=== PATIENT | female | born 1995 | race Caucasian/White ===

== ENCOUNTER 2023-06-13 08:13 | Outpatient (AMB) | payer OTHER, SELFPAY ==
--- NOTE | 2023-06-13 08:15 | MHC.PC.OV ---
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 Allergies peanut Allergy (Mild, Verified 06/13/23 08:24) Hives mushrooms Allergy (Mild, Uncoded 06/13/23 08:24) Hives Medication List - Last Reconciled 06/13/23 by KRAIG Matos albuterol sulfate 90 mcg/actuation (Ventolin HFA) 2 puffs inhalation QID PRN cholecalciferol (vitamin D3) 250 mcg PO QWEEK clonazepam 1 mg PO BEDTIME sertraline 225 mg PO BID trazodone 50 mg PO BEDTIME Tobacco use date assessed: 06/13/23 Dental Screening Dental Screen Date: 06/13/23 Did you have a dental visit in the last 12 months?: No Did you have a dental problem in the last 6 months where you did not have access to dental care?: No Was dental information given to patient?: No HPI HPI Comments History of Present Illness Details Patient is a 27-year-old female here to establish care. She has a past medical history significant for PTSD, insomnia, depression, and asthma. She is up-to-date on immunizations including this year's influenza and COVID booster. She is due for a Pap smear, will refer to OBGYN. She states that she needs to find a new psychiatric provider and is running low on medications, she will meet with community mental health liaison in office today. Denies SI/HI. [facility] Medical History (Updated 06/13/23 @ 09:29 by KRAIG Matos) Asthma Anxiety PTSD (post-traumatic stress disorder) Surgical History H/O foot surgery Family History (Updated 06/13/23 @ 08:32 by KRAIG Matos) Paternal Grandfather Brain cancer Maternal Aunt Diabetes Social History (Updated 06/13/23 @ 08:32 by KRAIG Matos) Housing: Apartment Alcohol intake: current Comment: 1 or 2 times per month Patient Tobacco Use Status: Never used Tobacco e-Cigarette/Vaping Use: Never Used service: No Current occupational status: employed Cognitive needs: No Hearing needs: No Vision needs: No Questionnaire PHQ-9 Over the last 2 weeks, how often have you been bothered by any of the following problems? 1. Little interest or pleasure in doing things: nearly every day 2. Feeling down, depressed, or hopeless: nearly every day 3. Trouble falling or staying asleep, or sleeping too much: nearly every day 4. Feeling tired or having little energy: nearly every day 5. Poor appetite or overeating: more than half the days 6. Feeling bad about yourself - or that you are a failure or have let yourself or your family down: more than half the days 7. Trouble concentrating on things, such as reading the newspaper or watching television: more than half the days 8. Moving or speaking so slowly that other people could have noticed. Or the opposite - being so fidgety or restless that you have been moving around a lot more than usual: not at all 9. Thoughts that you would be better off or of hurting yourself in some way: not at all Total score: 18 Depression Screening Interpretation: Positive Depression Screening Done: Yes 02640 - PHQ-9 Billing: Yes Source: Developed by Drs. Maurizio Hinton, Rebecca Johnson, Aakash Haley and colleagues, with an educational noah from [employer]. Thrive Questionnaire Date Thrive assessed: 06/13/23 I am a: Patient What is your living situation today?: I have a steady place to live Within the past 12 months, did the food you bought not last and you didn't have the money to get more?: Never true Within the past 12 months, did you worry whether your food would run out before you got money to buy more?: Never true Do you have trouble paying for medicines?: No Do you have trouble getting transportation to medical appointments?: No Do you have trouble paying your heating and electricity bill?: No Do you have trouble taking care of your child, family member or friend?: No Do you have trouble with day-to-day activities such as bathing, preparing meals, shopping, managing finances, etc.?: Yes Are you currently unemployed and looking for a job?: No Are you interested in more education?: No Please select the resources that you would like help with: None AUDIT C Alcohol Use Questionnaire (AUDIT-C) 1. How often do you have a drink containing alcohol?: Never 3. How often do you have six or more drinks on one occasion?: Never Total Score: 0 Score Reviewed/Action Taken: Yes WESTON-7 AMB Questionnaire WESTON-7 Feeling nervous, anxious, or on edge: 2 = More than half the days Not being able to stop or control worryin = More than half the days Worrying too much about different things: 3 = Nearly every day Trouble relaxin = More than half the days Being so restless that it is hard to sit still: 1 = Several days Becoming easily annoyed or irritable: 2 = More than half the days Feeling afraid as if something awful might happen: 2 = More than half the days Total WESTON-7 score (0-4 normal; 5-9 mild; 10-14 moderate; 15-21 severe): 14 Source: Developed by Drs. Maurizio Hinton, Rebecca Johnson, Aakash Haley and colleagues, with an educational noah from [employer]. WESTON-7 Assessment Billing WESTON-7 Assessment Tool: WESTON-7 Assessment 54462 Review of Systems Const Details: Constitutional : No Weight loss, No Fever, No Chills, No Fatigue, No Malaise Cardiovascular : No Chest Pain, No SOB, No Dyspnea on Exertion, No Orthopnea, No Edema, No Palpitations Respiratory : No Cough, No Sputum, No Wheezing Gastrointestinal : No Nausea, No Vomiting, No Diarrhea, No Constipation, No abdominal Pain, No Hematochezia, No Melena Musculoskeletal : No joint pain, No Myalgias, No Joint Swelling Skin : No Skin Lesions, No rash Neuro : No Weakness, No Numbness, No Dizziness, No Headache Psych :Admits Depression. Denies SI/HI. All other systems reviewed and are negative Physical exam (Primary Care) Vital Signs: Last Vital Signs Pulse 82 06/13/23 08:17 BP 126/78 06/13/23 08:17 Pulse Ox 97 06/13/23 08:17 Oxygen Delivery Method Room Air 06/13/23 08:17 Care Plan Goal for BP management: Vital signs reviewed and are stable BMI result Body Mass Index 31.0 Tobacco/Smoking Status: Tobacco use Status Tobacco use date assessed 06/13/23 06/13/23 08:22 Patient Tobacco Use Status Never used Tobacco 06/13/23 08:32 e-Cigarette/Vaping Use Never Used 06/13/23 08:32 PHQ-9: PHQ-9 Score PHQ-9: Total score 18 06/13/23 09:27 Depression Screening Interpretation: Positive Thrive Assessment: Date of Thrive Assessment Date Thrive assessed 06/13/23 06/13/23 09:14 Const Other: Appearance: Alert.? Oriented X3.? No acute distress.? Eyes: Pupils equal, round and reactive to light.? Neck: Normal inspection.? Neck supple.? CVS: Normal heart rate and rhythm.? Pulses normal.? Respiratory: No respiratory distress.? Breath sounds normal.? Skin: Skin warm and dry.? Normal skin color.? Normal skin turgor.? Neuro: Oriented X 3.? No motor deficit.? No sensory deficit. CN 2-12 intact Psych: Patient affect flat at times. Assessment and Plan Assessment & Plan (1) Depression with anxiety: Comment: Patient has history of anxiety and depression. Patient does not have mental health provider this time. Patient will meet with in office mental health liaison to assist in finding a mental health provider. Will refill the patient's sertraline and trazodone. Patient has been educated on signs of worsening symptoms and when to return to the office or when to present to the emergency room. Code(s): F41.8 - Other specified anxiety disorders Orders: Orders Complete Blood Count Auto Diff Today Z13.0 - Encounter for screening for diseases of the blood and blood-forming organs and certain disorders involving the immune mechanism Comprehensive Met. Panel Today Z91.89 - Other specified personal risk factors, not elsewhere classified Lipid Panel Today E78.5 - Hyperlipidemia, unspecified UA CC w/rflx Micro + Cult Today E86.0 - Dehydration TSH reflex Free T4 Today E03.9 - Hypothyroidism, unspecified Vitamin D 25-OH (D2 and D3) Today Z13.21 - Encounter for screening for nutritional disorder Referrals [employer] Referral Z01.419 - Encounter for gynecological examination (general) (routine) without abnormal findings Medications: New sertraline 200 mg (2 x 100 mg) PO DAILY 90 tabs 0RF sertraline 25 mg PO DAILY 90 tabs 0RF trazodone 50 mg PO BEDTIME 90 tabs 0RF Coding Level of Care Code New Pt Level 3 (95515) Diagnoses Depression with anxiety F41.8 Additional Codes WESTON-7 Assessment Billing - WESTON-7 Assessment Tool: WESTON-7 Assessment 48575 ([id number]) Time Spent (min) 30
[2023-06-13 08:17] VITALS: BP 126/78; PULSE 82; O2SAT 97; BMI 31.0
== END 2023-06-13 09:50 | disposition home or self-care (01) ==
PROVIDERS: Visit Provider Nurse Practitioner Primary Care
DX: F41.8 Other specified anxiety disorders (principal)
CPT/HCPCS: 96127; 99203

== ENCOUNTER 2023-07-08 11:18 | Outpatient (REF) | payer OTHER, SELFPAY ==
[2023-07-08 13:22] LABS: MANUAL DIFF FLAG NO
[2023-07-08 13:23] LABS: Appearance Urine Clear; Color Urine Yellow; Glucose Urine UA Negative (Negative); Leukocyte Esterase Urine Negative (Negative); Nitrite Urine Negative (Negative); Specific Gravity - Urine 1.025 (1.005-1.025); Urine Blood Negative (Negative); Urine Ketones Negative (Negative); Urine Protein Negative (Neg-Trace)
[2023-07-08 13:31] LABS: Basophils Percent Auto 0.1 % (0-2); Eosinophils Absolute Auto 0.1 X10*3/uL (0.0-0.4); Eosinophils Percent Auto 0.7 % (0-4); Hematocrit 39.7 % (37.0-47.0); Hemoglobin 13.4 g/dl (12.0-16.0); Imm Gran Abs Auto 0.01 X10*3/uL (0.00-0.03); Imm Gran Pct Auto 0.1 % (0.0-0.4); Lymphocytes Percent Auto 29.2 % (20-40); Mean Corpuscular HGB Conc 33.8 g/dl (31.0-35.0); Mean Corpuscular Hemoglobin 28.2 pg (27.0-33.0); Mean Corpuscular Volume 83.6 fL (80.0-98.0); Mean Platelet Volume 10.5 fL (9.4-12.3); Monocytes Absolute Auto 0.4 X10*3/uL (0.1-1.2); Monocytes Percent Auto 5.7 % (2-11); Neutrophils Absolute Auto 4.4 x10*3/uL (2.0-8.3); Neutrophils Percent Auto 64.2 % (45-73); Platelet Count 273 X10*3/uL (160-400); Red Blood Count 4.75 X10*6/uL (4.20-5.50); Red Cell Distribution Width 13.1 % (11.0-16.0); White Blood Count 6.8 X10*3/uL (4.8-10.8)
[2023-07-08 14:19] LABS: Alanine Aminotransferase 8 U/L (0-31); Albumin Level 4.6 g/dL (3.5-5.0); Alkaline Phosphatase 64 U/L (39-117); Anion Gap 11 (12-20); Aspartate Amino Transferase 11 U/L (5-31); Bilirubin Total 0.3 mg/dL (0.0-1.0); Blood Urea Nitrogen 17 mg/dL (9-16); Calcium 9.6 mg/dL (8.4-10.2); Carbon Dioxide 24 mmol/L (22-29); Chloride 107 mmol/L (96-108); Cholesterol 172 mg/dL (<200); Estimated Glomerular Filt Rate > 60; Glucose Random 85 mg/dL (60-115); HDL Cholesterol 51 mg/dL (>40); LDL Cholesterol Calculated 110 mg/dL (<100); Potassium 4.2 mmol/L (3.3-5.1); Sodium 138 mmol/L (135-145); TSH reflex Free T4 1.44 uIU/mL (0.32-4.0); Total Protein 8.2 g/dL (6.5-8.0); Triglycerides 58 mg/dL (<150)
[2023-07-12 14:38] LABS: Vitamin D 25-OH, D2 <4 ng/mL; Vitamin D 25-OH, D3 35 ng/mL; Vitamin D 25-OH, Total 35 ng/mL (30-100)
== END 2023-07-08 11:19 | disposition home or self-care (01) ==
LOC: HO.HMGCLDS 11:18
PROVIDERS: PCP Nurse Practitioner Primary Care; Visit Provider Nurse Practitioner Primary Care
DX: Z13.21 Encounter for screening for nutritional disorder (principal); Z13.0 Encounter for screening for diseases of the blood and blood-forming organs and certain disorders involving the immune mechanism; E03.9 Hypothyroidism, unspecified; E78.5 Hyperlipidemia, unspecified; E86.0 Dehydration; Z91.89 Other specified personal risk factors, not elsewhere classified
CPT/HCPCS: 36415; 80053; 80061; 81003; 82306; 84443; 85025

== ENCOUNTER 2023-10-13 09:02 | Outpatient (AMB) | payer OTHER, SELFPAY ==
[2023-10-13 09:09] VITALS: BP 126/72; PULSE 79; O2SAT 98; BMI 30.7
--- NOTE | 2023-10-13 09:11 | MHC.PC.OV ---
Vital Signs 10/13/23 09:09 Height 5 ft 6 in Weight 190 lb BMI 30.7 BP 126/72 Blood Pressure Location Rt brachial Position Sitting Pulse 79 Pulse Source Pulse Oximeter Pulse Oximetry (%) 98 Intake Visit Reasons: Annual PE Intake Note: pt is here for annual exam Allergies peanut Allergy (Mild, Verified 10/13/23 09:24) Hives mushrooms Allergy (Mild, Uncoded 10/13/23 09:24) Hives Medication List - Last Reconciled 10/13/23 by KRAIG Matos albuterol sulfate 90 mcg/actuation (Ventolin HFA) 2 puffs inhalation QID PRN cholecalciferol (vitamin D3) 250 mcg PO QWEEK sertraline 25 mg PO DAILY sertraline 200 mg (2 x 100 mg) PO DAILY trazodone 50 mg PO BEDTIME Tobacco use date assessed: 06/13/23 Dental Screening Dental Screen Date: 06/13/23 Did you have a dental visit in the last 12 months?: Yes Did you have a dental problem in the last 6 months where you did not have access to dental care?: No Was dental information given to patient?: Patient has dentist HPI HPI Comments History of Present Illness Details Patient is a 28-year-old female in today for physical exam. She has a past medical history significant for PTSD and anxiety- patient is currently taking 225 mg sertraline started by previous psychiatric provider. Patient has established care with therapist. Patient states she is doing well, would like to start reducing her dose of sertraline. She is currently on the wait list for a psychiatrist. Patient will have dose reduced to 200 mg p.o. daily. Insomnia - patient is currently taking 50 mg trazodone prn. She would like to stop taking this medication is making her feel drowsy the next day. Asthma - She is utilizing albuterol 4-5 times per week. [facility] at [facility] for daily use. Patient is due for Pap smear, referral was placed in May. Patient has been instructed to follow-up Patient is up-to-date with TD. [facility] Medical History (Updated 10/13/23 @ 09:49 by KRAIG Matos) Asthma Anxiety PTSD (post-traumatic stress disorder) Surgical History H/O foot surgery Family History Paternal Grandfather Brain cancer Maternal Aunt Diabetes Social History Housing: Apartment Alcohol intake: current Comment: 1 or 2 times per month Patient Tobacco Use Status: Never used Tobacco e-Cigarette/Vaping Use: Never Used service: No Current occupational status: employed Cognitive needs: No Hearing needs: No Vision needs: No Questionnaire PHQ-9 Over the last 2 weeks, how often have you been bothered by any of the following problems? 91983 - PHQ-9 Billing: Patient declined-do not bill Source: Developed by Drs. Maurizio Hinton, Rebecca Johnson, Aakash Haley and colleagues, with an educational noah from [employer]. Thrive Questionnaire Date Thrive assessed: 06/13/23 WESTON-7 AMB Questionnaire WESTON-7 Assessment Billing WESTON-7 Assessment Tool: pt declined-do not bill Review of Systems Const All systems reviewed & are unremarkable except as noted in HPI and below Psych Denies homicidal ideation and Denies suicidal ideation Physical exam (Primary Care) Vital Signs: Last Vital Signs Pulse 79 10/13/23 09:09 BP 126/72 10/13/23 09:09 Pulse Ox 98 10/13/23 09:09 Care Plan Goal for BP management: blood pressure is well controlled BMI result Body Mass Index 30.7 Tobacco/Smoking Status: Tobacco use Status Tobacco use date assessed 06/13/23 10/13/23 09:12 Patient Tobacco Use Status Never used Tobacco 10/13/23 09:12 e-Cigarette/Vaping Use Never Used 10/13/23 09:12 Thrive Assessment: Date of Thrive Assessment Date Thrive assessed 06/13/23 10/13/23 09:12 Forms completed: None ( patient declined) Const Other: Appearance: Alert.? Oriented X3.? No acute distress.? Head: Normocephalic, atraumatic, no step-offs or deformities Eyes: Pupils equal, round and reactive to light.? ENT: + post nasal drip. TM intact and pearly mercer. Neck: Normal inspection.? Neck supple.?Full ROM. CVS: Normal heart rate and rhythm.? Pulses normal.? Respiratory: No respiratory distress.? Breath sounds normal.? Abdomen: Soft and nontender.? Skin: Skin warm and dry.? Normal skin color.? Normal skin turgor.? Extremities: No lower extremity edema. 5/5 strength to bilateral upper and lower extremities Back: No midline tenderness, no C-spine tenderness, full range of motion, no CVA tenderness bilaterally Neuro: Oriented X 3.? No motor deficit.? No sensory deficit. CN 2-12 intact Results Reviewed Results Reviewed: Sodium 138 135-145 mmol/L Potassium 4.2 3.3-5.1 mmol/L CL 107 96-108 mmol/L CO2 24 22-29 mmol/L Gap 11 L 12-20 BUN 17 H 9-16 mg/dL Creat 0.83 0.5-1.4 mg/dL EGFR > 60 NOTE: For -[place] individuals, multiply the result by 1.210. Chronic Kidney Disease: Estimated GFR < 60 mL/min/1.73m2 Severe Kidney Disease: Estimated GFR < 15 mL/min/1.73m2 Glucose, Random 85 60-115 mg/dL CA 9.6 8.4-10.2 mg/dL Total Bili 0.3 0.0-1.0 mg/dL AST (GOT) 11 5-31 U/L ALT (GPT) 8 0-31 U/L Protein, Total 8.2 H 6.5-8.0 g/dL Alb 4.6 3.5-5.0 g/dL Triglyceride 58 <150 mg/dL Desirable Triglyceride: less than 150 mg/dL Borderline High Triglyceride 150-199 mg/dL High Triglyceride: 200-499 mg/dL Very High Triglyceride: greater than or equal to 5OO mg/dL Cholesterol 172 <200 mg/dL Desirable Cholesterol: less than 200 mg/dL Borderline High Cholesterol: 200-239 mg/dL High Cholesterol: greater than 239 mg/dL LDL Calculated 110 H <100 mg/dL Desirable LDL: less than 100 mg/dL Near Optimal/Above Optimal LDL: 110-129 mg/dL Borderline High LDL: 130-159 mg/dL High LDL: 160-189 mg/dL Very High LDL: greater than or equal to 190 mg/dL HDL 51 >40 mg/dL Desirable HDL: greater than 40 mg/dL Note: This HDL assay may give artificially low results in patients with liver disease. Alk Phos 64 39-117 U/L TSH 1.44 0.32-4.0 uIU/mL Assessment and Plan Assessment & Plan (1) Encounter for physical examination: Comment: will draw CBC and BMP. Code(s): Z00.00 - Encounter for general adult medical examination without abnormal findings (2) Depression with anxiety: Comment: His tablets care with therapist. On wait list for psychiatrist. Patient currently taking 225 mg sertraline would like to be weaned down. Patient will be instructed to take 200 mg p.o. daily. She has been educated on signs of worsening symptoms and when to report to the walk-in or to present to the ED Code(s): F41.8 - Other specified anxiety disorders (3) Asthma: Comment: patient currently utilizing albuterol 4-5 times per week. Patient will be given a Symbicort. Code(s): J45.909 - Unspecified asthma, uncomplicated Qualifiers: Asthma complication type: unspecified Asthma persistence: unspecified Asthma severity: moderate Qualified Code(s): J45.909 - Unspecified asthma, uncomplicated (4) Seasonal allergies: Comment: Patient instructed to start cetirizine 10 mg p.o. daily. Code(s): J30.2 - Other seasonal allergic rhinitis Plan: Patient will follow-up in a 4 weeks for medication review Orders: Orders Comprehensive Met. Panel Today Z91.89 - Other specified personal risk factors, not elsewhere classified Complete Blood Count Auto Diff Today Z13.0 - Encounter for screening for diseases of the blood and blood-forming organs and certain disorders involving the immune mechanism Medications: New budesonide-formoterol 160-4.5 mcg/actuation (Symbicort) 1 inh inhalation BID 10.2 grams 0RF cetirizine (All Day Allergy (cetirizine)) 10 mg PO DAILY PRN 60 tabs 0RF allergy symptoms Discontinued sertraline Discontinued Reason: Patient no longer taking 25 mg PO DAILY 90 tabs 0RF trazodone Discontinued Reason: Patient no longer taking 50 mg PO BEDTIME 90 tabs 0RF Coding Level of Care Code Est Pt Prev Care 18-39y(69574) Diagnoses Encounter for physical examination Z00.00 Depression with anxiety F41.8 Moderate asthma, unspecified whether complicated, unspecified whether persistent J45.909 Asthma complication type: unspecified Asthma persistence: unspecified Asthma severity: moderate Seasonal allergies J30.2
== END 2023-10-13 10:48 | disposition home or self-care (01) ==
PROVIDERS: Visit Provider Nurse Practitioner Primary Care
DX: Z00.00 Encounter for general adult medical examination without abnormal findings (principal); F41.8 Other specified anxiety disorders; J45.909 Unspecified asthma, uncomplicated
CPT/HCPCS: 99395

== ENCOUNTER 2023-11-17 08:58 | Outpatient (AMB) | payer OTHER, SELFPAY ==
[2023-11-17 09:04] VITALS: BP 110/74; PULSE 73; O2SAT 98; BMI 31.6
--- NOTE | 2023-11-17 09:04 | MHC.PC.OV ---
Vital Signs 11/17/23 09:04 Height 5 ft 6 in Weight 196 lb BMI 31.6 BP 110/74 Blood Pressure Location Lt brachial Position Sitting Pulse 73 Pulse Source Pulse Oximeter Pulse Oximetry (%) 98 Oxygen Delivery Method Room Air Intake Visit Reasons: 1 Month follow up Intake Note: pt is here forr 1 month f/u for asthma Allergies peanut Allergy (Mild, Verified 11/17/23 09:05) Hives mushrooms Allergy (Mild, Uncoded 11/17/23 09:05) Hives Medication List - Last Reconciled 11/17/23 by KRAIG Matos albuterol sulfate 90 mcg/actuation (Ventolin HFA) 2 puffs inhalation QID PRN budesonide-formoterol 160-4.5 mcg/actuation (Symbicort) 1 inh inhalation BID cetirizine (All Day Allergy (cetirizine)) 10 mg PO DAILY PRN cholecalciferol (vitamin D3) 250 mcg PO QWEEK sertraline 200 mg (2 x 100 mg) PO DAILY Tobacco use date assessed: 11/17/23 Dental Screening Dental Screen Date: 06/13/23 HPI HPI Comments History of Present Illness Details Patient is a 28-year-old female in today for follow-up. Patient is establishing care with psychiatric provider and therapist. She has expressed interest in reducing her dose of sertraline, was on 225 mg 4 weeks prior, was instructed to reduce that to 200 mg in follow-up today. Patient presents today stating that she had weaned herself down to 150 mg sertraline p.o. daily. He states that she is feeling less tired during the day and overall has responded well to this dosage. She does report that she has during to feel her emotions more than before, and has 1-2 episodes of crying during the week. She does has establish care with therapist which she believes helps. Patient will meet again today with mental health community navigator to establish care for psychiatrist to handle medication management. Patient has been instructed to this appointment not to reduce the sertraline dosage at this time. She has been educated on symptoms of reflux anxiety due to reducing dosage from 225 mg down to 150 mg p.o. daily of sertraline Patient is still due for Pap smear. 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 Patient will continue to work with therapist on this, will establish psychiatric care to assist with methods for patient to cope with this as it is important that she receives the screenings. Patient states that she understands She was also started on Symbicort 4 weeks prior, due to albuterol use of 3-5 times per week. She states that since she started the Symbicort she has not had to use the albuterol inhaler. [facility] Medical History Asthma Anxiety PTSD (post-traumatic stress disorder) Surgical History H/O foot surgery Family History Paternal Grandfather Brain cancer Maternal Aunt Diabetes Social History Housing: Apartment Alcohol intake: current Comment: 1 or 2 times per month Patient Tobacco Use Status: Never used Tobacco e-Cigarette/Vaping Use: Never Used service: No Current occupational status: employed Cognitive needs: No Hearing needs: No Vision needs: No Questionnaire PHQ-9 Over the last 2 weeks, how often have you been bothered by any of the following problems? 75677 - PHQ-9 Billing: Patient declined-do not bill Source: Developed by Drs. Maurizio Hinton, Rebecca Johnson, Aakash Haley and colleagues, with an educational noah from [employer]. Thrive Questionnaire Date Thrive assessed: 06/13/23 WESTON-7 AMB Questionnaire WESTON-7 Assessment Billing WESTON-7 Assessment Tool: pt declined-do not bill ACT Questionnaire In the past 4 weeks, how much of the time did your asthma keep you from getting as much done at work, school or at home?: None of the time During the past 4 weeks, how often have you had shortness of breath?: 1-2 times a week During the past 4 weeks, how often did your asthma symptoms wake you up at night or earlier than usual in the morning?: Not at all During the past 4 weeks, how often have you had to use your rescue inhaler or nebulizer medication?: Once a week or less How would you rate your asthma control during the past 4 weeks?: Completely controlled Score: 23 Review of Systems Const All systems reviewed & are unremarkable except as noted in HPI and below Denies chills and Denies fever(s) Card Denies chest pain and Denies dyspnea Resp Denies cough, Denies dyspnea and Denies wheezing Psych Reports anxiety, Denies homicidal ideation and Denies suicidal ideation Aller/Immun Denies wheezing Physical exam (Primary Care) Tobacco/Smoking Status: Tobacco use Status Tobacco use date assessed 06/13/23 11/17/23 09:04 Patient Tobacco Use Status Never used Tobacco 11/17/23 09:04 e-Cigarette/Vaping Use Never Used 11/17/23 09:04 Thrive Assessment: Date of Thrive Assessment Date Thrive assessed 06/13/23 11/17/23 09:04 HENMA Other: Appearance: Alert.? Oriented X3.? No acute distress.? Head: Normocephalic Neck: Normal inspection.? Neck supple.? CVS: Normal heart rate and rhythm.? Pulses normal.? Respiratory: No respiratory distress.? Breath sounds normal.? Neuro: Oriented X 3.? No motor deficit.? No sensory deficit. CN 2-12 intact Psych: No SI/HI. Assessment and Plan Assessment & Plan (1) Asthma: Comment: Utilizing Symbicort with good results. The patient states she is not having the use albuterol during the week now. This is an improvement from 4 times per week. Code(s): J45.909 - Unspecified asthma, uncomplicated Qualifiers: Asthma severity: moderate Asthma persistence: unspecified Asthma complication type: unspecified Qualified Code(s): J45.909 - Unspecified asthma, uncomplicated (2) Depression with anxiety: Comment: Patient has weaned herself down on sertraline dosage. Originally started at 225 mg 4 weeks prior to this appointment, after 2 weeks reduced down to 200 mg, 2 weeks later reduce down to 150 mg. Patient has been instructed that she should states this dose of 150 mg p.o. daily in till she has stab wishes care with psychiatry. She has been educated on signs of worsening symptoms and when to report to the office or when to present to the ED or call crisis. Patient does have establish care with therapist with good effect. Patient meeting with community mental health navigator to establish psychiatric care Code(s): F41.8 - Other specified anxiety disorders Coding Level of Care Code Est Pt Level 4 (47033) Diagnoses Moderate asthma, unspecified whether complicated, unspecified whether persistent J45.909 Asthma severity: moderate Asthma persistence: unspecified Asthma complication type: unspecified Depression with anxiety F41.8 Time Spent (min) 40
== END 2023-11-17 09:58 | disposition home or self-care (01) ==
PROVIDERS: PCP Nurse Practitioner Primary Care; Visit Provider Nurse Practitioner Primary Care
DX: J45.909 Unspecified asthma, uncomplicated (principal); F41.8 Other specified anxiety disorders
CPT/HCPCS: 99214

== ENCOUNTER 2024-02-29 10:36 | Outpatient (AMB) | payer OTHER, SELFPAY ==
--- NOTE | 2024-02-29 10:47 | MHC.OFFWIV ---
Intake Vital Signs 02/29/24 10:49 Height 5 ft 6 in Weight 204 lb BMI 32.9 BP 124/80 Blood Pressure Location Rt brachial Position Sitting Pulse 68 Pulse Source Pulse Oximeter Temp 98.3 F Temp Source Oral Pulse Oximetry (%) 99 Oxygen Delivery Method Room Air Intake Visit Reasons: EP cough, chest pain Intake Note: Patient here for cough that started yesterday, she states she has been having chest tightness and hurts when coughing, runny nose that goes to back of throat. Patient Tobacco Use Status: Never used Tobacco Allergies peanut Allergy (Mild, Verified 02/29/24 10:51) Hives mushrooms Allergy (Mild, Uncoded 02/29/24 10:51) Hives Do you need a note to return to daycare/school/sports/work: Yes HPI HPI Comments History of Present Illness Details Patient is a 28-year-old female with a past medical history of asthma complaining of a cough and chest tightness x2 days. She states she also has a stuffy nose and a cough. She does have a Ventolin inhaler which she has been using with no relief. She states she still feels very short of breath and like her lungs are tight. She took some ibuprofen and Mucinex yesterday with no improvement in her symptoms. [facility] Medical History Asthma Anxiety PTSD (post-traumatic stress disorder) Surgical History H/O foot surgery Family History Paternal Grandfather Brain cancer Maternal Aunt Diabetes Social History Housing: Apartment Alcohol intake: current Comment: 1 or 2 times per month Patient Tobacco Use Status: Never used Tobacco e-Cigarette/Vaping Use: Never Used service: No Current occupational status: employed Cognitive needs: No Hearing needs: No Vision needs: No Review of Systems Const All systems reviewed & are unremarkable except as noted in HPI and below Physical Exam Vital Signs: Last Vital Signs Temp 98.3 F 02/29/24 10:49 Pulse 68 02/29/24 10:49 BP 124/80 02/29/24 10:49 Pulse Ox 99 02/29/24 10:49 Oxygen Delivery Method Room Air 02/29/24 10:49 BMI result Body Mass Index 32.9 Const General: cooperative, healthy appearing, comfortable and no acute distress Orientation/consciousness: patient oriented x3 Limitations: no limitations HEENT Head: Yes normal to inspection Ears: hearing grossly normal bilaterally, external ears normal and TM's normal bilaterally General nose exam: Normal external nose present, Normal nares present and No nasal discharge present Face and sinus: Yes normal facial exam and Yes sinuses nontender Mouth: Normal oral and palatal mucosa present and moist mucous membranes Throat: Yes tonsils normal, Yes uvula midline and Yes posterior oropharynx abnormal (Erythema) Eyes General: appearance normal, both eyes and all related structures Neck Neck: Yes normal visual inspection Resp Effort & Inspection: normal respiratory effort, able to speak in complete sentences, no respiratory distress, not tachypneic, no tripod positioning and no use of accessory muscles Auscultation: clear to auscultation bilaterally Cardio Rate: regular rate Rhythm: regular rhythm Heart sounds: normal S1 and S2 Skin General skin exam: no rashes or lesions noted Neuro General: patient oriented x3 Extrem General: Yes normal to inspection and Yes no clubbing, cyanosis or edema Assessment & Plan Assessment & Plan (1) URI (upper respiratory infection): Code(s): J06.9 - Acute upper respiratory infection, unspecified Qualifiers: URI type: unspecified viral URI Qualified Code(s): J06.9 - Acute upper respiratory infection, unspecified Plan: Vital signs are stable, patient well-appearing and lung sounds are clear. However as patient is complaining of feeling like she is short of breath, we will do a small short burst of prednisone. Encouraged her to continue to use her inhaler and take the Mucinex, increase her fluid intake. We will write a work note for today and tomorrow so she can rest. Also sent flu COVID and RSV testing. Plan See above Medications: New prednisone 20 mg PO DAILY 5 tabs 0RF Coding Level of Care Code Est Pt Level 3 (46122) Diagnoses Viral upper respiratory tract infection J06.9 URI type: unspecified viral URI
[2024-02-29 10:49] VITALS: BP 124/80; PULSE 68; TEMP 36.8; O2SAT 99; BMI 32.9
== END 2024-02-29 11:14 | disposition home or self-care (01) ==
PROVIDERS: PCP Nurse Practitioner Primary Care; Visit Provider Physician Assistant
DX: J06.9 Acute upper respiratory infection, unspecified (principal)

== ENCOUNTER 2024-02-29 10:36 | Outpatient (REF) | payer OTHER, SELFPAY ==
[2024-02-29 14:50] LABS: Influenza A PCR NEGATIVE (Negative); Influenza B PCR NEGATIVE (Negative); Resp Syncy Virus RNA Qual PCR NEGATIVE (Negative); SARS COV2 PCR INHOUSE POSITIVE (Negative)
== END 2024-02-29 10:37 | disposition home or self-care (01) ==
LOC: HO.LAB 10:36
PROVIDERS: PCP Nurse Practitioner Primary Care; Visit Provider Physician Assistant
DX: J06.9 Acute upper respiratory infection, unspecified (principal)
CPT/HCPCS: 0241U

== ENCOUNTER 2024-04-16 08:58 | Outpatient (AMB) | payer OTHER, SELFPAY ==
--- NOTE | 2024-04-16 09:09 | AM.OFFWIN_ITS ---
Intake Vital Signs 04/16/24 09:16 Weight 204 lb BP 138/80 Blood Pressure Location Lt brachial Position Sitting Pulse 78 Pulse Source Pulse Oximeter Temp 98.3 F Temp Source Oral Pulse Oximetry (%) 97 Oxygen Delivery Method Room Air Intake Visit Reasons: EP ? UTI and hip pain Intake Note: Patient here for burning sensation, nausea and hip pain that started . Patient Tobacco Use Status: Never used Tobacco Allergies peanut Allergy (Mild, Verified 04/16/24 09:16) Hives mushrooms Allergy (Mild, Uncoded 04/16/24 09:16) Hives Do you need a note to return to daycare/school/sports/work: Yes HPI HPI Comments History of Present Illness Details Patient is a 28-year-old female complaining of 4 days of burning with urination, increased frequency of urination and low back pain. She also tells me she has some pain in her lower right abdomen, towards her hip and she is not sure if that is related to the UTI. She tells me she has not had any fevers as not it seen any blood in her urine and does not have a history of kidney stones. She tells me there is no chance of because she just finished menstruation. [facility] Medical History Asthma Anxiety PTSD (post-traumatic stress disorder) Surgical History H/O foot surgery Family History Paternal Grandfather Brain cancer Maternal Aunt Diabetes Social History Housing: Apartment Alcohol intake: current Comment: 1 or 2 times per month Patient Tobacco Use Status: Never used Tobacco e-Cigarette/Vaping Use: Never Used service: No Current occupational status: employed Cognitive needs: No Hearing needs: No Vision needs: No Review of Systems Const All systems reviewed & are unremarkable except as noted in HPI and below Physical Exam Vital Signs: Last Vital Signs Temp 98.3 F 04/16/24 09:16 Pulse 78 04/16/24 09:16 BP 138/80 04/16/24 09:16 Pulse Ox 97 04/16/24 09:16 Oxygen Delivery Method Room Air 04/16/24 09:16 Const General: cooperative, healthy appearing, comfortable and no acute distress Orientation/consciousness: patient oriented x3 HEENT Head: Yes normal to inspection Ears: hearing grossly normal bilaterally General nose exam: Normal external nose present Face and sinus: Yes normal facial exam Neck Neck: Yes normal visual inspection, Yes trachea midline and Yes supple Resp Effort & Inspection: normal respiratory effort and able to speak in complete sentences GI Inspection: Yes normal to inspection Palpation (GI): Soft to palpation and Tenderness to palpation present (GI) in the RLQ and suprapubicly Skin General skin exam: no rashes or lesions noted Neuro General: patient oriented x3 Psych Appearance: grossly normal Speech and movement: Normal speech and movement present Attitude: cooperative Thought process: Normal thought process present Insight: Good insight present (Psych) Judgement: Good judgement present (Psych) Results AMB Urinalysis, Automated UA Leukoctes 70 Lea/uL Last Edit by Magaly Collins CMA on 04/16/24 09:28 UA Nitrite Positive Last Edit by Magaly Collins CMA on 04/16/24 09:28 UA Urobilinogen 1 mg/dL Last Edit by Magaly Collins CMA on 04/16/24 09:28 UA Protein 0 mg/dL Last Edit by Magaly Collins CMA on 04/16/24 09:28 UA pH 6.0 Last Edit by Magaly Collins CMA on 04/16/24 09:28 UA Blood 10 Jason/uL Last Edit by Magaly Collins CMA on 04/16/24 09:28 UA Specific [place] 1.020 Last Edit by Magaly Collins CMA on 04/16/24 09:28 UA Ketone Negative Last Edit by Magaly Collins CMA on 04/16/24 09:28 UA Bilirubin 0 mg/dL Last Edit by Magaly Collins CMA on 04/16/24 09:28 UA Glucose 0 mg/dL Last Edit by Magaly Collins CMA on 04/16/24 09:28 Assessment & Plan Assessment & Plan (1) UTI (urinary tract infection): Code(s): N39.0 - Urinary tract infection, site not specified Qualifiers: Urinary tract infection type: acute cystitis Hematuria presence: with hematuria Qualified Code(s): N30.01 - Acute cystitis with hematuria Plan: Urinalysis is positive for leukocyte esterase, nitrites and blood, we will treat with cefuroxime, patient denies chance of as recent menstruation. Recommended if her pain increases, she develops a fever or if things get worse instead of better after starting the antibiotics for 24-48 hours, she should go to the emergency room for the possibility of a kidney stone however likelihood is very low. Plan See above Medications: New cefuroxime axetil 500 mg PO Q12H 10 tabs 0RF Coding Level of Care Code New Pt Level 3 (53596) Diagnoses Acute cystitis with hematuria N30.01 Urinary tract infection type: acute cystitis Hematuria presence: with hematuria
[2024-04-16 09:16] VITALS: BP 138/80; PULSE 78; TEMP 36.8; O2SAT 97
== END 2024-04-16 09:28 | disposition home or self-care (01) ==
PROVIDERS: Visit Provider Physician Assistant
DX: N30.01 Acute cystitis with hematuria (principal)

== ENCOUNTER → 2024-04-16 08:58 | Outpatient (BNVA) | payer OTHER, SELFPAY | PROVIDERS: Visit Provider Physician Assistant | DX: N30.01 Acute cystitis with hematuria (principal) | CPT/HCPCS: 81003 ==

== ENCOUNTER 2024-05-26 12:24 | Outpatient (AMB) | payer OTHER, SELFPAY ==
--- NOTE | 2024-05-26 13:50 | MHC.OFFWIV ---
Intake Vital Signs 05/26/24 13:54 Weight 196 lb BP 106/70 Blood Pressure Location Rt brachial Position Sitting Pulse 72 Pulse Source Pulse Oximeter Pulse Oximetry (%) 98 Oxygen Delivery Method Room Air Intake Visit Reasons: EP diff taking deep breaths, pain in chest Intake Note: Patient here for difficulty breathing and chest tightness that started this morning, she states that she works in a [employer] where some of the residents do have the flu. Patient Tobacco Use Status: Never used Tobacco Allergies peanut Allergy (Mild, Verified 05/26/24 13:53) Hives mushrooms Allergy (Mild, Uncoded 05/26/24 13:53) Hives HPI EP diff taking deep breaths, pain in chest HPI Details Patient is a 28-year-old female with history of asthma, anxiety, and PTSD. She reports that she woke up this morning feeling a fullness/tightness to the chest, like she could not take a deep breath. Since then she has been asymptomatic otherwise. She reports no associated symptoms, including palpitations, syncope, heartburn, nausea vomiting or diarrhea, abdominal or pelvic pain, runny nose, postnasal drip, cough, sharp or pleuritic chest pain otherwise, nausea vomiting or diarrhea, weakness or dizziness, myalgias or malaise, fever or chills, or other significant symptoms. She does report that she works in a [employer] where multiple residents have been recently diagnosed with influenza. She has not tested at home for COVID or other illnesses yet. No recent history of trauma or other physical exertion recently. [facility] Medical History Asthma Anxiety PTSD (post-traumatic stress disorder) Surgical History H/O foot surgery Family History Paternal Grandfather Brain cancer Maternal Aunt Diabetes Social History Housing: Apartment Alcohol intake: current Comment: 1 or 2 times per month Patient Tobacco Use Status: Never used Tobacco e-Cigarette/Vaping Use: Never Used service: No Current occupational status: employed Cognitive needs: No Hearing needs: No Vision needs: No Review of Systems Const All systems reviewed & are unremarkable except as noted in HPI and below Physical Exam Vital Signs: Last Vital Signs Pulse 72 05/26/24 13:54 BP 106/70 05/26/24 13:54 Pulse Ox 98 05/26/24 13:54 Oxygen Delivery Method Room Air 05/26/24 13:54 Const General: cooperative, healthy appearing, comfortable, no acute distress, alert, awake, Physically active, anxious and well groomed; No diaphoretic, ill appearing, intoxicated appearing, poor hygiene or tired appearing Nutritional Appearance: average body habitus Orientation/consciousness: patient oriented x3 Limitations: no limitations HEENT Head: Yes normal to inspection, Yes normocephalic and Yes atraumatic Ears: hearing grossly normal bilaterally, external ears normal, TM's normal bilaterally and EAC's normal General nose exam: Normal external nose present, Normal nares present, No nasal polyps present, Normal nasal mucous membranes and turbinates present, Normal septum present and No nasal discharge present Face and sinus: Yes normal facial exam, Yes sinuses nontender and Yes face symmetric Mouth: Normal oral and palatal mucosa present, lip normal and tongue normal Throat: Yes posterior oropharynx normal, No peritonsillar mass, No postnasal drainage, No uvular edema and No cobblestoning Eyes General: appearance normal, both eyes and all related structures Neck Neck: Yes normal visual inspection, Yes full ROM, Yes no lymphadenopathy, Yes trachea midline, Yes supple and No anterior neck swelling Chest Chest palpation & inspection: normal palpation of entire chest wall Resp Effort & Inspection: normal respiratory effort, able to speak in complete sentences, normal respiratory pattern, no audible wheezes, no cough, respiratory effort not decreased, no grunting, not labored, no nasal flaring, no respiratory distress, no retractions, no stridor, not tachypneic, no tracheal deviation, no tripod positioning, no use of accessory muscles, No prolonged expiratory phase and symmetric chest movement Auscultation: clear to auscultation bilaterally, no crackles, no rales, no rhonchi, no wheezes, lung sounds not diminished and No rub present Cardio Palpation: normal PMI Rate: regular rate Rhythm: regular rhythm Heart sounds: S1 normal heart sound present and S2 normal heart sound present Skin Other: Good color, warm and dry Neuro General: patient oriented x3 Psych Appearance: grossly normal Mental Status: mental status grossly normal Speech and movement: Normal speech and movement present Affect: normal affect Attitude: cooperative Thought process: Normal thought process present Insight: Good insight present (Psych) Judgement: Good judgement present (Psych) Results AMB Urinalysis, Automated UA Leukoctes 0 Lea/uL Last Edit by Francisco Huggins [facility] on 05/26/24 14:37 UA Nitrite Negative Last Edit by Francisco Huggins [facility] on 05/26/24 14:37 UA Urobilinogen 0.2 mg/dL Last Edit by Francisco Huggins [facility] on 05/26/24 14:37 UA Protein 15 mg/dL Last Edit by Francisco Huggins [facility] on 05/26/24 14:37 UA pH 8.0 Last Edit by Francisco Huggins [facility] on 05/26/24 14:37 UA Blood 0 Jason/uL Last Edit by Francisco Huggins [facility] on 05/26/24 14:37 UA Specific [place] 1.015 Last Edit by Francisco Huggins [facility] on 05/26/24 14:37 UA Ketone Negative Last Edit by Francisco Huggins [facility] on 05/26/24 14:37 UA Bilirubin 0 mg/dL Last Edit by Francisco Huggins [facility] on 05/26/24 14:37 UA Glucose 0 mg/dL Last Edit by Francisco Huggins [facility] on 05/26/24 14:37 AMB Test Urine AMB Test Urine Negative Last Edit by Francisco Huggins [facility] on 05/26/24 14:37 Results Reviewed Results Reviewed: Laboratory Last Values Urine pH (Auto) 8.0 05/26/24 14:35 Specific [place] (Auto) 1.015 05/26/24 14:35 Urine Protein (Auto) 15 mg/dL 05/26/24 14:35 Glucose (UA)(Auto) 0 mg/dL 05/26/24 14:35 Urine Ketones (Auto) Negative 05/26/24 14:35 Urine Blood (Auto) 0 Jason/uL 05/26/24 14:35 Urine Nitrite (Auto) Negative 05/26/24 14:35 Urine Bilirubin (Auto) 0 mg/dL 05/26/24 14:35 Urine Urobilinogen (Auto) 0.2 mg/dL 05/26/24 14:35 Leukocyte Esterase (Auto) 0 Lea/uL 05/26/24 14:35 [facility] Clinic Negative 05/26/24 14:35 Urine test negative. Urine dip unremarkable. Plain film 2 view chest xray unremarkable Assessment & Plan Assessment & Plan (1) Asthma: Code(s): J45.909 - Unspecified asthma, uncomplicated Qualifiers: Asthma complication type: unspecified Asthma persistence: unspecified Asthma severity: moderate Qualified Code(s): J45.909 - Unspecified asthma, uncomplicated Plan Patient is a 28-year-old female with history of persistent asthma, anxiety and PTSD, with complaint of chest tightness upon waking from sleep with no apparent associated viral/respiratory symptoms and appears to be in good health, is well-appearing and in no apparent distress otherwise. Vital signs are stable including 98% oxygen saturation, and her lung sounds are clear with adequate respiratory rate and quality. Pending results of rapid COVID and flu COVID and influenza PCR results. Urine test negative, and urine dip unremarkable. Twelve lead EKG is unremarkable and chest x-ray shows no acute cardiopulmonary processes. It is likely that her asthma is just starting to get aggravated, however she has no current wheezing or signs of an asthma exacerbation, and no other apparent viral or respiratory symptoms. She can use her albuterol inhaler as needed if she feels she is getting short of breath, which she has not reported yet. It is also possible that she is having a flare-up of her anxiety, although she does not currently appear to be in a state of crisis or having a panic attack. It might have been that this is what happened in her sleep however. This does not seem pleuritic in nature, but we did discuss the possibility of APE or worrisome process. We discussed that her tests so far have been negative and unremarkable however, and that we will give her feedback as it comes. In the meantime, she should follow her symptoms closely and follow up if they persist or worsen, and go to the emergency department for emergent evaluation if she develops worsening or worrisome symptoms. Orders: Orders AMB EKG-In Office 05/26/24 R07.89 - Other chest pain AMB Urinalysis Automated 05/26/24 Z13.9 - Encounter for screening, unspecified XR chest 2V 05/26/24 R05.9 - Cough, unspecified SARS-CoV2/FLU/RSV 05/26/24 J06.9 - Acute upper respiratory infection, unspecified [employer] Covid-19 Ag 05/26/24 Z20.822 - Contact with and (suspected) exposure to COVID-19 AMB HCG Urine Test 05/26/24 R07.89 - Other chest pain Coding Level of Care Code Est Pt Level 5 (84291) Diagnoses Moderate asthma, unspecified whether complicated, unspecified whether persistent J45.909 Asthma complication type: unspecified Asthma persistence: unspecified Asthma severity: moderate
[2024-05-26 13:54] VITALS: BP 106/70; PULSE 72; O2SAT 98
== END 2024-05-26 15:08 | disposition home or self-care (01) ==
PROVIDERS: Visit Provider Physician Assistant Medical
DX: J45.909 Unspecified asthma, uncomplicated (principal)

== ENCOUNTER 2024-05-26 12:24 | Outpatient (REF) | payer OTHER, SELFPAY ==
--- NOTE | ~2024-05-26 | XR_ITS ---
CLINICAL HISTORY: R05.9 - Cough, unspecified 2 view chest x-ray Comparison: None Findings: The lungs are clear. Normal size heart. No acute fracture. IMPRESSION: 1. No acute findings. This document has been electronically signed by: Daiana Diaz MD on 05/26/2024 15:42:01
[2024-05-26 14:49] LABS: Binax Internal Control QC Valid; Binax Lot number: 869104; Binax Now Covid-19 Ag Negative (Negative); Binax Performed by: HO.BONILM
[2024-05-26 16:11] LABS: Influenza A PCR NEGATIVE (Negative); Influenza B PCR NEGATIVE (Negative); Resp Syncy Virus RNA Qual PCR NEGATIVE (Negative); SARS COV2 PCR INHOUSE NEGATIVE (Negative)
== END 2024-05-26 12:25 | disposition home or self-care (01) ==
LOC: HO.HMGCX 12:24
PROVIDERS: Visit Provider Physician Assistant Medical
DX: J45.909 Unspecified asthma, uncomplicated (principal); J06.9 Acute upper respiratory infection, unspecified; R07.89 Other chest pain; R05.9 Cough, unspecified; Z20.822 Contact with and (suspected) exposure to COVID-19
CPT/HCPCS: 0241U; 71046; 81003; 81025; 87811; 93005

== ENCOUNTER → 2024-05-26 14:38 | Outpatient (BNV) | payer OTHER, SELFPAY | PROVIDERS: Visit Provider Radiology Diagnostic Radiology | DX: R05.9 Cough, unspecified (principal) | CPT/HCPCS: 71046 ==

== ENCOUNTER → 2024-07-04 12:01 | Outpatient (BNVA) | payer OTHER, SELFPAY | PROVIDERS: Visit Provider Internal Medicine | DX: J45.20 Mild intermittent asthma, uncomplicated (principal); F41.1 Generalized anxiety disorder; F50.819 Binge eating disorder, unspecified; Z79.899 Other long term (current) drug therapy; Z23 Encounter for immunization | CPT/HCPCS: 90471; 90656; 96127; 96160 ==